=== PATIENT | male | born 1990 | race Caucasian/White ===

== ENCOUNTER 2016-10-06 19:41 | Emergency (ER) | payer OTHER | END 2016-10-06 22:55 | disposition home or self-care (01) | LOC: FER 19:41 | DX: S46.911A Strain of unspecified muscle, fascia and tendon at shoulder and upper arm level, right arm, initial encounter (principal); F17.210 Nicotine dependence, cigarettes, uncomplicated; X50.3XXA Overexertion from repetitive movements, initial encounter; Y92.69 Other specified industrial and construction area as the place of occurrence of the external cause; Y99.0 Civilian activity done for income or pay | CPT/HCPCS: 73030; J1885 ==

== ENCOUNTER 2021-05-14 10:08 | Emergency (ER) | payer MEDICAID ==
[~2021-05-14 10:08] MED LIST: AUGMENTIN 875-1 EACH PO; MEDROL 4MG DOSEP4 MG PO; OCUFLOX5 ML EYERT
[2021-05-14] MEDS ORDERED: BACTRIM DS TAB1 EACH PO (11:07)
== END 2021-05-14 11:23 | disposition home or self-care (01) ==
LOC: FER 10:08
DX: L02.213 Cutaneous abscess of chest wall (principal); F17.210 Nicotine dependence, cigarettes, uncomplicated
CPT/HCPCS: 87070; 87205